=== PATIENT | male | born 1940 | race Caucasian/White ===

== ENCOUNTER 2018-10-08 17:55 | Inpatient (IN) | payer MEDICARE, OTHER ==
[~2018-10-08] VITALS: Ht 162.6 cm; Wt 67.7 kg
[2018-10-08] MEDS ORDERED: ONDANSETRON 4 MG/2 ML VIAL IV ONE (18:45)
[2018-10-08] MEDS ORDERED: IV NORMAL SALINE 1000 ML BAG IV ONE ×3 (18:45→20:15)
[2018-10-08] MEDS ORDERED: ONDANSETRON 4 MG/2 ML VIAL ONE (18:59)
[2018-10-08 19:05] LABS: BASOPHILS % (AUTO) 0.2 % (0.0-2.0); HEMATOCRIT 41.1 % (36.7-47.1); HEMOGLOBIN 14.4 g/dL (12.5-16.3); LYMPHOCYTES # (AUTO) 0.4 K/uL (20.0-40.0); LYMPHOCYTES % (AUTO) 3.3 % (20.5-51.5); MEAN CORPUSCULAR HEMOGLOBIN 31.6 uug (23.8-33.4); MEAN CORPUSCULAR HGB CONC 35 g/dL (32.5-36.3); MEAN CORPUSCULAR VOLUME 90.5 fL (73.0-96.2); MONOCYTES # (AUTO) 0.4 K/uL (2.0-10.0); MONOCYTES % (AUTO) 3.5 % (0.0-11.0); NEUTROPHILS # (AUTO) 11.4 K/uL (1.8-8.9); PLATELET COUNT (AUTO) 142 K/uL (152-348); RED BLOOD CELL COUNT(AUTO) 4.54 MIL/uL (4.06-5.63); WHITE BLOOD COUNT (AUTO) 12.3 K/uL (3.6-10.2)
[2018-10-08 19:12] LABS: CARBON DIOXIDE 20 mmol/L (21-32); CHLORIDE 92 mmol/L (98-107); CREATININE 4.3 mg/dL (0.6-1.3); GLUCOSE 157 mg/dL (74-106); POTASSIUM 3.5 mmol/L (3.5-5.1); UREA NITROGEN, BLOOD 60 mg/dL (7-18)
[2018-10-08 19:18] LABS: ALANINE AMINOTRANSFERASE 37 U/L (16-63); ALKALINE PHOSPHATASE 57 U/L (50-136); ASPARTATE AMINOTRANSFERASE 98 U/L (15-37); BILIRUBIN,DIRECT 0.2 mg/dL (0.0-0.2); BILIRUBIN,TOTAL 0.6 mg/dL (0.2-1.0); LIPASE 67 U/L (73-393); TOTAL PROTEIN, SERUM 7.9 g/dL (6.4-8.2)
[2018-10-08 19:29] LABS: BAND % (MANUAL) 36 % (0-10); LYMPHOCYTES % (MANUAL) 5 % (20-40); MONOCYTES % (MANUAL) 4 % (2-10); NEUTROPHILS % (MANUAL) 55 % (42-75)
[2018-10-08] MEDS ORDERED: AZITHROMYCIN 500 MG VIAL IV ONE (19:36)
[2018-10-08] MEDS ORDERED: CEFTRIAXONE 1 G VIAL ONE (19:37)
[2018-10-08] MEDS ORDERED: CEFTRIAXONE 1 G in IV DEXTROSE 5% 50 ML IV ONE (19:45)
[2018-10-08] MEDS ORDERED: AZITHROMYCIN IV 500 MG in IV DEXTROSE 5% 250 ML IV ONE (19:45)
--- NOTE | 2018-10-08 19:57 | NUR ---
EPIC paged for panel call
[2018-10-08 20:00] LABS: *BILIRUBIN,URIN NEGATIVE (NEGATIVE); *BLOOD, URINE 3+ (NEGATIVE); *COLOR,URINE YELLOW (YELLOW); *KETONES,URINE TRACE (NEGATIVE); *PROTEIN,URINE 2+ (NEGATIVE); *UROBILINOGEN,URINE 0.2 E.U./dl (NORMAL); LEUKOCYTE ESTERASE ,URINE NEGATIVE (NEGATIVE); NITRITE, URINE NEGATIVE (NEGATIVE); PH,URINE 5.5 (5.0-8.0); UGLUCOSE NEGATIVE (NEGATIVE)
--- NOTE | 2018-10-08 20:03 | NUR ---
Dr. Champion on phone with Heike LUCIA.
[2018-10-08] MEDS ORDERED: GUAIFENESIN/CODEINE 5 ML LIQUID UDC PO ONE (20:15)
[2018-10-08] MEDS ORDERED: ALBUTEROL SULFATE 2.5 MG/3 ML NEBU NEB ONE (20:15)
[2018-10-08] MEDS ORDERED: GUAIFENESIN/CODEINE 5 ML LIQUID UDC ONE (20:24)
[2018-10-08] MEDS ORDERED: ALBUTEROL SULFATE 2.5 MG/3 ML NEBU ONE (20:25)
[2018-10-08 20:33] LABS: *CLARITY,URINE HAZY (CLEAR)
[2018-10-08 20:35] LABS: MUCUS,URINE FEW /LPF (0-FEW); SQUAMOUS EPITHELIAL CELL,UR FEW /HPF (NONE SEEN); URINE AMORPHOUS URATE MODERATE /HPF; WBC,URINE 0-3 /HPF (0-3)
[2018-10-08] MEDS ORDERED: TAMS0.4C34 PO (20:35)
--- NOTE | 2018-10-08 20:35 | NUR ---
UNABLE TO OBTAIN COMPLETE MEDICATION LIST AT THIS TIME
[2018-10-08] MEDS ORDERED: LOSA25TA27 PO (20:50)
[2018-10-08] MEDS ORDERED: FERR325T28 PO (20:50)
[2018-10-08] MEDS ORDERED: [UNRECOGNIZED DRUG - REMARK] PO (20:50)
[2018-10-08] MEDS ORDERED: losartan PO (20:50)
[2018-10-08] MEDS ORDERED: lipitor PO (20:50)
[2018-10-08] MEDS ORDERED: [UNRECOGNIZED DRUG - REMARK] PO (20:50)
[2018-10-08] MEDS ORDERED: OXYC5CAP18 PO (20:50)
[2018-10-08] MEDS ORDERED: DOCU-141 PO (20:51)
--- NOTE | 2018-10-08 20:55 | NUR ---
Pt. admitted to TELE , under care of MAXIMO CRAB BACKER Belongs List completed
--- NOTE | 2018-10-08 21:15 | NUR ---
PT WAS BROUGHT TO FLOOR VIA FAMILY NICK AT BEDSIDE. ADMITTED TO TELE UNDER VEDA MARSH NP. INITIATED ADMISSION ASSESSMENT. WILL CALL FOR ORDERS.
[2018-10-08 21:20] VITALS: BP 149/45
[2018-10-08] MEDS ORDERED: ONDANSETRON 4 MG/2 ML VIAL IV PRN (21:45)
[2018-10-08] MEDS: ZOLPIDEM 5 MG TABLET PO PRN (22:26)
[2018-10-08] MEDS: ACETAMINOPHEN 325 MG TABLET PO PRN (22:26)
[2018-10-08 23:19] VITALS: BP 144/54
[2018-10-08] MEDS: IV NS 1000 ML 1,000 ML IV PRN (23:49)
--- NOTE | 2018-10-09 00:56 | NUR ---
SEEN BY VEDA MARSH NP.
[2018-10-09] MEDS: GUAIFENESIN LA 600 MG TABLET.SA PO SCH ×3 (01:23→20:53)
[2018-10-09] MEDS: methylPREDNISolone SOD SUCC 40 MG/ML VIAL IV SCH ×4 (01:24→20:52)
[2018-10-09] MEDS ORDERED: LEVOFLOXACIN 500 MG/D5W 100 ML ONE (01:32)
[2018-10-09] MEDS ORDERED: LEVOFLOXACIN 500 MG/D5W 500 MG in PREMIXED 1 EACH IV SCH (02:00)
[2018-10-09] MEDS ORDERED: TAMS0.4C34 PO (03:14)
[2018-10-09 03:41] VITALS: BP 108/50
--- NOTE | 2018-10-09 05:17 | NUR ---
PT IN BED, ASLEEP. COUGHING FREQUENTLY , GIVEN WITH MUCINEX ORDERED. IV FLUIDS RUNNING. SINUS TACH ON TELE 107. SAFETY MEASURES RENDERED.
[2018-10-09 06:40] LABS: BASOPHILS % (AUTO) 0.2 % (0.0-2.0); EOSINOPHILS % (AUTO) 0.1 % (0.0-7.0); HEMATOCRIT 36.6 % (36.7-47.1); LYMPHOCYTES # (AUTO) 0.3 K/uL (20.0-40.0); LYMPHOCYTES % (AUTO) 6.4 % (20.5-51.5); MEAN CORPUSCULAR HEMOGLOBIN 31.5 uug (23.8-33.4); MEAN CORPUSCULAR HGB CONC 35 g/dL (32.5-36.3); MEAN CORPUSCULAR VOLUME 88.8 fL (73.0-96.2); MONOCYTES # (AUTO) 0.2 K/uL (2.0-10.0); MONOCYTES % (AUTO) 4.8 % (0.0-11.0); NEUTROPHILS # (AUTO) 4.5 K/uL (1.8-8.9); NEUTROPHILS % (AUTO) 88.5 % (38.5-71.5); PLATELET COUNT (AUTO) 92 K/uL (152-348); RED BLOOD CELL COUNT(AUTO) 4.12 MIL/uL (4.06-5.63); WHITE BLOOD COUNT (AUTO) 5.1 K/uL (3.6-10.2)
[2018-10-09 06:54] LABS: CARBON DIOXIDE 20 mmol/L (21-32); CHLORIDE 101 mmol/L (98-107); CHOLESTEROL 62 mg/dL (<200); CREATININE 3.6 mg/dL (0.6-1.3); GLUCOSE 121 mg/dL (74-106); HDL CHOLESTEROL 21 mg/dL (40-60); POTASSIUM 3.6 mmol/L (3.5-5.1); TRIGLYCERIDES 138 MG/DL (30-150); UREA NITROGEN, BLOOD 58 mg/dL (7-18)
[2018-10-09 06:56] LABS: MAGNESIUM 0.8 mg/dL (1.8-2.4)
--- NOTE | 2018-10-09 07:00 | NUR ---
Magnesium 0.8 be tidwell was paged, awaiting to call back. Endorsed to am nurse to f/u .
[2018-10-09] MEDS: MAGNESIUM SULFATE/D5W 100 ML IV SCH ×4 (08:07→10:58)
[2018-10-09 09:19] LABS: BAND % (MANUAL) 20 % (0-10); LYMPHOCYTES % (MANUAL) 7 % (20-40); MONOCYTES % (MANUAL) 10 % (2-10); NEUTROPHILS % (MANUAL) 60 % (42-75)
[2018-10-09 09:20] LABS: EOSINOPHILS % (MANUAL) 1 % (0-8); METAMYELOCYTES % 2 % (0-1)
[2018-10-09] MEDS: IPRATROPIUM BROMIDE 0.5 MG/2.5 ML NEBU NEB PRN ×3 (09:32→23:55)
[2018-10-09] MEDS: ALBUTEROL SULFATE 2.5 MG/ 0.5 ML NEBU NEB PRN ×3 (09:32→23:55)
[2018-10-09 12:00] VITALS: BP 130/59
[2018-10-09] MEDS: ACETAMINOPHEN 325 MG TABLET PO PRN (12:29)
--- NOTE | 2018-10-09 12:30 | NUR ---
PATIENT GIVEN TYLENOL FOR MILD FEVER
--- NOTE | 2018-10-09 14:32 | NUR ---
CLINICAL PHARMACY NOTE:VANCOMYCIN DOSING Request for vancomycin dosing on 78 y/o male 5'4" 149lbs for possible blood stream infection Temp 100.2F BUN 58 Scr 3.6 WBC 5.1 bands 20 also on Levaquin Start vancomycin 1gm ivpb x 1 today. Will dose by levels due to decrease renal function. Random vancomycin level ordered for tomorrow afternoon. Will continue to monitor
[2018-10-09 14:46] LABS: *BILIRUBIN,URIN NEGATIVE (NEGATIVE); *BLOOD, URINE 3+ (NEGATIVE); *COLOR,URINE YELLOW (YELLOW); *KETONES,URINE NEGATIVE (NEGATIVE); *PROTEIN,URINE 1+ (NEGATIVE); *UROBILINOGEN,URINE 0.2 E.U./dl (NORMAL); LEUKOCYTE ESTERASE ,URINE NEGATIVE (NEGATIVE); NITRITE, URINE NEGATIVE (NEGATIVE); PH,URINE 5.5 (5.0-8.0); UGLUCOSE NEGATIVE (NEGATIVE)
[2018-10-09] MEDS ORDERED: VANCOMYCIN IV 1 G in PREMIXED 0 EACH IV ONE (15:00)
[2018-10-09 15:18] LABS: *CREATININE,URINE 56.5 mg/dL (30-125); *URINE TOTAL PROTEIN RANDOM 15.7 mg/dL (<150/24HR)
[2018-10-09 15:32] LABS: *CLARITY,URINE SLIGHTLY HAZY (CLEAR)
[2018-10-09 15:35] LABS: URINE AMORPHOUS URATE MODERATE /HPF; WBC,URINE 0-3 /HPF (0-3)
[2018-10-09 15:36] LABS: MUCUS,URINE FEW /LPF (0-FEW)
[2018-10-09] MEDS ORDERED: MENTHOL TOP (17:27)
[2018-10-09] MEDS ORDERED: LOSA100T31 PO (17:27)
[2018-10-09] MEDS ORDERED: MELO-107 PO (17:27)
[2018-10-09] MEDS ORDERED: COLC0.6C3 PO (17:27)
[2018-10-09] MEDS ORDERED: TRIA1CAP6 PO (17:27)
[2018-10-09] MEDS ORDERED: SILD100T PO (17:29)
[2018-10-09] MEDS ORDERED: [UNRECOGNIZED DRUG - CODE] BC (17:29)
[2018-10-09] MEDS ORDERED: SIMV20TA6 PO (17:33)
[2018-10-09] MEDS ORDERED: EMOL113C2 TP (17:33)
[2018-10-09] MEDS ORDERED: HYDR-3326 PO (17:35)
--- NOTE | 2018-10-09 18:58 | NUR ---
Patient is currently in bed, and has been cooperative with care, 5 episodes of diarrhea throughout the day. Currently patient receiving breathing treatment, and tolerates well. oxygen increased to 3L as patient saturation dropping to 89. Received med list from pharmacy at the [facility]. Informed be to update med list.
[2018-10-09] MEDS ORDERED: CEFTRIAXONE 1 G in IV DEXTROSE 5% 50 ML IV SCH (19:00)
[2018-10-09] MEDS: IV NS 1000 ML 1,000 ML IV PRN (19:41)
[2018-10-09] MEDS ORDERED: AZITHROMYCIN IV 500 MG in IV DEXTROSE 5% 250 ML IV SCH (20:00)
[2018-10-09] MEDS ORDERED: CEFEPIME HCL 1 G in IV DEXTROSE 5% 50 ML IV SCH (20:00)
[2018-10-09 20:32] VITALS: BP 111/42
[2018-10-09] MEDS: CEFEPIME HCL 1 G in IV DEXTROSE 5% 50 ML IV SCH (20:52)
[2018-10-09] MEDS: HYDROCODONE/APAP 5-325MG TABLET PO PRN (20:53)
[2018-10-09] MEDS: ATORVASTATIN 40 MG TABLET PO SCH (22:17)
[2018-10-09] MEDS: ASPIRIN 81 MG TAB.CHEW PO SCH (22:17)
[2018-10-09] MEDS: ZOLPIDEM 5 MG TABLET PO PRN (22:18)
[2018-10-10 00:43] VITALS: BP 112/37
[2018-10-10 05:48] VITALS: BP 108/44
[2018-10-10] MEDS: methylPREDNISolone SOD SUCC 40 MG/ML VIAL IV SCH ×3 (06:22→21:23)
[2018-10-10] MEDS: HYDROCODONE/APAP 5-325MG TABLET PO PRN ×2 (06:28→19:37)
[2018-10-10] MEDS: IV NS 1000 ML 1,000 ML IV PRN (06:28)
[2018-10-10 06:37] LABS: BASOPHILS % (AUTO) 0.1 % (0.0-2.0); EOSINOPHILS % (AUTO) 0.1 % (0.0-7.0); HEMATOCRIT 32.9 % (36.7-47.1); HEMOGLOBIN 11.9 g/dL (12.5-16.3); LYMPHOCYTES # (AUTO) 0.2 K/uL (20.0-40.0); LYMPHOCYTES % (AUTO) 2.6 % (20.5-51.5); MEAN CORPUSCULAR HEMOGLOBIN 31.9 uug (23.8-33.4); MEAN CORPUSCULAR HGB CONC 36 g/dL (32.5-36.3); MEAN CORPUSCULAR VOLUME 88.6 fL (73.0-96.2); MONOCYTES # (AUTO) 0.3 K/uL (2.0-10.0); MONOCYTES % (AUTO) 3.8 % (0.0-11.0); NEUTROPHILS # (AUTO) 8.2 K/uL (1.8-8.9); NEUTROPHILS % (AUTO) 93.4 % (38.5-71.5); PLATELET COUNT (AUTO) 98 K/uL (152-348); RED BLOOD CELL COUNT(AUTO) 3.71 MIL/uL (4.06-5.63); WHITE BLOOD COUNT (AUTO) 8.7 K/uL (3.6-10.2)
[2018-10-10 06:46] LABS: ALANINE AMINOTRANSFERASE 42 U/L (16-63); ALKALINE PHOSPHATASE 43 U/L (50-136); ASPARTATE AMINOTRANSFERASE 88 U/L (15-37); BILIRUBIN,TOTAL 0.4 mg/dL (0.2-1.0); CARBON DIOXIDE 22 mmol/L (21-32); CHLORIDE 102 mmol/L (98-107); CREATININE 2.2 mg/dL (0.6-1.3); GLUCOSE 128 mg/dL (74-106); TOTAL PROTEIN, SERUM 5.8 g/dL (6.4-8.2); UREA NITROGEN, BLOOD 48 mg/dL (7-18)
[2018-10-10 06:47] LABS: POTASSIUM 2.8 mmol/L (3.5-5.1)
--- NOTE | 2018-10-10 07:30 | NUR ---
RECEIVED PATIENT REPORT FROM AUTOMOBILE LIGHTS ASSEMBLER. PATIENT IS AWAKE, ALERT AND ORIENTED. CURRENTLY RECEIVING BREATHING TREATMENT. NO SIGNS OF DISTRESS OR PAIN NOTED. WILL CONTINUE TO MONITOR. BED IS IN LOW POSITION, CALL LIGHT WITHIN REACH.
[2018-10-10] MEDS: IPRATROPIUM BROMIDE 0.5 MG/2.5 ML NEBU NEB PRN ×2 (07:32→11:30)
[2018-10-10] MEDS: ALBUTEROL SULFATE 2.5 MG/ 0.5 ML NEBU NEB PRN ×2 (07:32→11:30)
[2018-10-10 08:19] LABS: BAND % (MANUAL) 20 % (0-10); LYMPHOCYTES % (MANUAL) 8 % (20-40); MONOCYTES % (MANUAL) 11 % (2-10); NEUTROPHILS % (MANUAL) 61 % (42-75)
[2018-10-10] MEDS: GUAIFENESIN LA 600 MG TABLET.SA PO SCH ×2 (09:21→20:21)
[2018-10-10] MEDS: ASPIRIN 81 MG TAB.CHEW PO SCH (09:21)
[2018-10-10] MEDS: METOPROLOL TARTRATE 25 MG TABLET PO SCH ×2 (09:22→20:20)
[2018-10-10] MEDS: ENSURE ENLIVE (VAN) 240 ML LIQUID PO SCH ×3 (09:23→17:18)
[2018-10-10] MEDS: POTASSIUM CHLORIDE 50 ML IV SCH ×4 (10:10→14:44)
[2018-10-10 11:02] VITALS: BP 122/43
[2018-10-10] MEDS: ALBUTEROL SULFATE 2.5 MG/3 ML NEBU NEB SCH ×2 (13:16→20:02)
[2018-10-10] MEDS: IPRATROPIUM BROMIDE 0.5 MG/2.5 ML NEBU NEB SCH ×2 (13:16→20:03)
--- NOTE | 2018-10-10 14:30 | NUR ---
CLINICAL PHARMACY NOTE:VANCOMYCIN DOSING To continue vancomycin dosing on 78 y/o male 5'4" 149lbs for possible blood stream infection Temp 97.8F BUN 48 Scr 2.2 (yesterday 3.6) WBC 8.7 Random off am labs today 11.0 Due to decreased renal function that is now improving, will continue to dose per level until stable. Dosed 1gm today at 1500. Will check renal fxn in am and order next random accordingly. Will continue to monitor
[2018-10-10] MEDS ORDERED: VANCOMYCIN IV 1 G in PREMIXED 0 EACH IV ONE (15:00)
[2018-10-10 15:04] LABS: CARBON DIOXIDE 22 mmol/L (21-32); CHLORIDE 102 mmol/L (98-107); CREATININE 1.9 mg/dL (0.6-1.3); GLUCOSE 195 mg/dL (74-106); UREA NITROGEN, BLOOD 43 mg/dL (7-18)
[2018-10-10 15:14] LABS: POTASSIUM 2.5 mmol/L (3.5-5.1)
[2018-10-10 15:36] VITALS: BP 120/50
--- NOTE | 2018-10-10 18:47 | NUR ---
PATIENT IS IN BED, BED IS IN LOW LOCKED POSITION AND CALL LIGHT WITHIN REACH. FAMILY IS AT BEDSIDE. NO SIGNS OR SYMPTOMS OF DISTRESS NOTED. PAIN IS ON 3L OF OXYGEN VIA NASAL CANNULA. NO PAIN AT THE MOMENT.
--- NOTE | 2018-10-10 19:58 | NUR ---
Received patient in bed awake & alert with family in room. No SOB denies chest pain but c/o pain on right lower abdomen radiating to right lower back. Offered pain meds, patient tolerated [place] 1 tab po. Vital signs WNL. Assisted to bedside commode, patient voided. Sinus rhythm on the monitor w/ HR 83 bpm.
[2018-10-10 20:03] VITALS: BP 135/42
[2018-10-10] MEDS: LACTOBACILLUS RHAMNOSUS GG 1 EACH CAPSULE PO SCH (20:20)
[2018-10-10] MEDS: ATORVASTATIN 40 MG TABLET PO SCH (20:21)
[2018-10-10] MEDS: Z GUARD REMEDY PASTE 57 GM TUBE TOP PRN (20:21)
[2018-10-10] MEDS: CEFEPIME HCL 1 G in IV DEXTROSE 5% 50 ML IV SCH (20:23)
[2018-10-10] MEDS ORDERED: LEVOFLOXACIN 750MG/D5W 750 MG in PREMIXED 1 EACH IV SCH (21:00)
[2018-10-11 00:01] VITALS: BP 115/36
[2018-10-11 05:24] VITALS: BP 117/43
[2018-10-11] MEDS: methylPREDNISolone SOD SUCC 40 MG/ML VIAL IV SCH ×3 (05:57→21:19)
[2018-10-11] MEDS: Z GUARD REMEDY PASTE 57 GM TUBE TOP PRN (06:02)
[2018-10-11 06:35] LABS: BASOPHILS % (AUTO) 0.1 % (0.0-2.0); HEMATOCRIT 29.2 % (36.7-47.1); HEMOGLOBIN 10.5 g/dL (12.5-16.3); LYMPHOCYTES # (AUTO) 0.6 K/uL (20.0-40.0); LYMPHOCYTES % (AUTO) 4.8 % (20.5-51.5); MEAN CORPUSCULAR HEMOGLOBIN 31.8 uug (23.8-33.4); MEAN CORPUSCULAR HGB CONC 36 g/dL (32.5-36.3); MEAN CORPUSCULAR VOLUME 88.6 fL (73.0-96.2); MONOCYTES # (AUTO) 1.2 K/uL (2.0-10.0); MONOCYTES % (AUTO) 9.3 % (0.0-11.0); NEUTROPHILS # (AUTO) 10.6 K/uL (1.8-8.9); NEUTROPHILS % (AUTO) 85.8 % (38.5-71.5); PLATELET COUNT (AUTO) 100 K/uL (152-348); WHITE BLOOD COUNT (AUTO) 12.4 K/uL (3.6-10.2)
[2018-10-11 06:51] LABS: ALANINE AMINOTRANSFERASE 40 U/L (16-63); ALKALINE PHOSPHATASE 54 U/L (50-136); ASPARTATE AMINOTRANSFERASE 47 U/L (15-37); BILIRUBIN,TOTAL 0.4 mg/dL (0.2-1.0); CARBON DIOXIDE 23 mmol/L (21-32); CHLORIDE 103 mmol/L (98-107); CREATININE 1.4 mg/dL (0.6-1.3); GLUCOSE 128 mg/dL (74-106); MAGNESIUM 1.6 mg/dL (1.8-2.4); PHOSPHOROUS 2.6 mg/dL (2.5-4.9); TOTAL PROTEIN, SERUM 5.6 g/dL (6.4-8.2); UREA NITROGEN, BLOOD 37 mg/dL (7-18)
[2018-10-11] MEDS: IV NS 1000 ML 1,000 ML IV PRN (06:53)
[2018-10-11 07:11] LABS: POTASSIUM 2.4 mmol/L (3.5-5.1)
--- NOTE | 2018-10-11 07:23 | NUR ---
Fairly rested, no acute resp distress. Noted increased redness on body area & lower legs, patient denies pain/itchiness. Received a call from the lab for current Potassium level= 2.4 mEq. Report given to Elana SALTER.
--- NOTE | 2018-10-11 07:30 | NUR ---
RECEIVED REPORT FROM SENIOR CORPORATE ACCOUNTANT NURSE, PATIENT IN BED AWAKE, UP AT COMMODE, NO DISTRESS NOTED AT THIS TIME, BED IN LOW POSITION, SIDE RAIL UP X2.
[2018-10-11] MEDS: ALBUTEROL SULFATE 2.5 MG/3 ML NEBU NEB SCH ×3 (07:39→20:07)
[2018-10-11 07:40] LABS: BAND % (MANUAL) 14 % (0-10); LYMPHOCYTES % (MANUAL) 3 % (20-40); MONOCYTES % (MANUAL) 7 % (2-10)
[2018-10-11 07:41] LABS: NEUTROPHILS % (MANUAL) 76 % (42-75)
[2018-10-11] MEDS: IPRATROPIUM BROMIDE 0.5 MG/2.5 ML NEBU NEB SCH ×3 (07:42→20:07)
[2018-10-11] MEDS: ENSURE ENLIVE (VAN) 240 ML LIQUID PO SCH ×3 (08:18→16:01)
[2018-10-11] MEDS: ASPIRIN 81 MG TAB.CHEW PO SCH (09:54)
[2018-10-11] MEDS: GUAIFENESIN LA 600 MG TABLET.SA PO SCH ×2 (09:54→21:19)
[2018-10-11] MEDS: LACTOBACILLUS RHAMNOSUS GG 1 EACH CAPSULE PO SCH ×2 (09:55→21:21)
[2018-10-11] MEDS: METOPROLOL TARTRATE 25 MG TABLET PO SCH ×2 (09:55→21:20)
[2018-10-11 11:14] VITALS: BP 149/52
[2018-10-11] MEDS ORDERED: POTASSIUM CHLORIDE 20 MEQ TAB.PRT.SR PO ONE ×3 (11:15→15:00)
[2018-10-11] MEDS: MAGNESIUM SULFATE/D5W 100 ML IV SCH ×2 (11:53→12:43)
[2018-10-11] MEDS ORDERED: CEFEPIME HCL 1 G in IV DEXTROSE 5% 50 ML IV SCH (13:00)
[2018-10-11] MEDS: IV 1/2 NS + KCL 20 MEQ BAG 1,000 ML IV SCH (13:32)
[2018-10-11 14:25] LABS: CARBON DIOXIDE 24 mmol/L (21-32); CHLORIDE 101 mmol/L (98-107); CREATININE 1.5 mg/dL (0.6-1.3); GLUCOSE 179 mg/dL (74-106); UREA NITROGEN, BLOOD 35 mg/dL (7-18)
[2018-10-11 14:28] LABS: POTASSIUM 2.4 mmol/L (3.5-5.1)
[2018-10-11 15:26] VITALS: BP 137/48
--- NOTE | 2018-10-11 16:30 | NUR ---
RECEIVED ORDERS FROM DR. FAJARDO FOR 40MEQ KCL IV REPLACEMENT AND 40MEQ KCL PO Q4HRS X2, BASED ON REPORTED LABS, AFTER DISCUSSING ORDERS, PHARMACY CHECKED ORDERS AND REQUESTED LABS FOR 2100 BEFORE 2ND PO DOSE OF KCL ORDER GIVE. IF LABS ARE TOO ELEVATED, DR. FAJARDO IS TO BE CALLED TO DISCONTINUE 2ND ORDER OF PO 40MEQ KCL.
[2018-10-11] MEDS: POTASSIUM CHLORIDE 50 ML IV SCH ×5 (17:01→21:51)
[2018-10-11] MEDS ORDERED: SIMVASTATIN 20 MG TABLET PO SCH (18:00)
--- NOTE | 2018-10-11 18:36 | NUR ---
Patient has been cooperative with care, all needs met. Patient continues to ask for a shower after he was given a bed bath and shave by TICKET MAKER. Patient continues to be unstable on feet, and cannot stretching machine tender frame shower. Currently Potassium infusing, ice bag provided for pain in arm from infusion. Bed in low position, side rails up x2, bed alarm on.
[2018-10-11] MEDS ORDERED: diphenhydrAMINE 25 MG CAP PO PRN (19:30)
[2018-10-11 20:34] VITALS: BP 142/93
[2018-10-11] MEDS: ATORVASTATIN 40 MG TABLET PO SCH (21:21)
[2018-10-11] MEDS: TAMSULOSIN HCL 0.4 MG CAP.SR.24H PO SCH (21:21)
[2018-10-11] MEDS: ZOLPIDEM 5 MG TABLET PO PRN (21:27)
[2018-10-11] MEDS ORDERED: MEROPENEM 500 MG VIAL IV ONE (21:33)
[2018-10-11] MEDS: POTASSIUM CHLORIDE 20 MEQ TAB.PRT.SR PO SCH (21:50)
[2018-10-11] MEDS: MEROPENEM 0.5 G in IV NORMAL SALINE 50 ML IV SCH (21:51)
[2018-10-12] MEDS: POTASSIUM CHLORIDE 20 MEQ TAB.PRT.SR PO SCH ×2 (00:20→04:32)
[2018-10-12] MEDS: IV 1/2 NS + KCL 20 MEQ BAG 1,000 ML IV SCH ×3 (00:35→14:19)
[2018-10-12] MEDS: methylPREDNISolone SOD SUCC 40 MG/ML VIAL IV SCH ×3 (05:38→21:50)
[2018-10-12] MEDS ORDERED: MEROPENEM 500 MG VIAL IV ONE (05:51)
[2018-10-12 05:55] VITALS: BP 132/72
[2018-10-12] MEDS: MEROPENEM 0.5 G in IV NORMAL SALINE 50 ML IV SCH (06:09)
[2018-10-12 06:47] LABS: CARBON DIOXIDE 23 mmol/L (21-32); CHLORIDE 108 mmol/L (98-107); CREATININE 1.2 mg/dL (0.6-1.3); GLUCOSE 121 mg/dL (74-106); MAGNESIUM 1.5 mg/dL (1.8-2.4); PHOSPHOROUS 1.9 mg/dL (2.5-4.9); POTASSIUM 3.7 mmol/L (3.5-5.1); UREA NITROGEN, BLOOD 32 mg/dL (7-18)
--- NOTE | 2018-10-12 06:54 | NUR ---
END OF SHIFT REPORT Patient rested well in between care; seen by Ayana METAL CABINET FINISHER with new orders; K+ last night was 2.8, continued K+ pills as ordered; patient's LEFT arm IV dcd; new IV to right wrist started; pt pulled out this IV and new IV started again on the R forearm; no acute distress; assisted to meet hygiene needs; no nausea, vomiting or diarrhea; fall precaution; patient is for PICC line placement today; will endorse to next shift.
[2018-10-12 07:30] LABS: BASOPHILS # (AUTO) 0.1 K/uL (0.0-8.0); BASOPHILS % (AUTO) 0.8 % (0.0-2.0); EOSINOPHILS % (AUTO) 0.1 % (0.0-7.0); LYMPHOCYTES # (AUTO) 1.8 K/uL (20.0-40.0); LYMPHOCYTES % (AUTO) 17.1 % (20.5-51.5); MEAN CORPUSCULAR HEMOGLOBIN 31.8 uug (23.8-33.4); MEAN CORPUSCULAR HGB CONC 36 g/dL (32.5-36.3); MEAN CORPUSCULAR VOLUME 87.7 fL (73.0-96.2); MONOCYTES # (AUTO) 0.8 K/uL (2.0-10.0); MONOCYTES % (AUTO) 7.5 % (0.0-11.0); NEUTROPHILS # (AUTO) 7.7 K/uL (1.8-8.9); NEUTROPHILS % (AUTO) 74.5 % (38.5-71.5); PLATELET COUNT (AUTO) 95 K/uL (152-348); RED BLOOD CELL COUNT(AUTO) 3.07 MIL/uL (4.06-5.63); WHITE BLOOD COUNT (AUTO) 10.3 K/uL (3.6-10.2)
[2018-10-12] MEDS: IPRATROPIUM BROMIDE 0.5 MG/2.5 ML NEBU NEB SCH ×3 (07:41→18:30)
[2018-10-12] MEDS: ALBUTEROL SULFATE 2.5 MG/3 ML NEBU NEB SCH ×3 (07:41→18:30)
--- NOTE | 2018-10-12 07:48 | NUR ---
RECEIVED PATIENT LYING IN BED, PATIENT IS AWAKE ALERT AND ORIENTED. NO SIGNS OF DISTRESS NOTED, PATIENT IS ON OXYGEN VIA NASAL CANNULA. WILL CONTINUE TO MONITOR. CALL LIGHT WITHIN REACH, BED IN LOW POSITION.
[2018-10-12 08:02] LABS: HEMATOCRIT 27.2 % (36.7-47.1)
[2018-10-12] MEDS: LACTOBACILLUS RHAMNOSUS GG 1 EACH CAPSULE PO SCH ×2 (08:35→20:26)
[2018-10-12] MEDS: ENSURE ENLIVE (VAN) 240 ML LIQUID PO SCH ×3 (08:35→17:12)
[2018-10-12] MEDS: GUAIFENESIN LA 600 MG TABLET.SA PO SCH ×2 (08:35→20:26)
[2018-10-12] MEDS: ASPIRIN 81 MG TAB.CHEW PO SCH (08:35)
[2018-10-12] MEDS: FERROUS SULFATE 325 MG TABEC PO SCH (08:35)
[2018-10-12] MEDS: METOPROLOL TARTRATE 25 MG TABLET PO SCH ×2 (08:36→20:30)
[2018-10-12] MEDS: LORATADINE 10 MG TABLET PO SCH (08:36)
[2018-10-12 08:44] LABS: BAND % (MANUAL) 9 % (0-10); LYMPHOCYTES % (MANUAL) 16 % (20-40); MONOCYTES % (MANUAL) 7 % (2-10); NEUTROPHILS % (MANUAL) 68 % (42-75)
[2018-10-12] MEDS ORDERED: NEUTRA PHOS PACKET PO ONE (10:45)
[2018-10-12 11:01] VITALS: BP 152/60
[2018-10-12] MEDS: MAGNESIUM SULFATE/D5W 100 ML IV SCH ×2 (12:26→13:41)
--- NOTE | 2018-10-12 19:04 | NUR ---
PATIENT IS LAYING IN BED COMFORTABLY, DENIES ANY PAIN. NO SIGNS OF DISTRESS NOTED. BED IS IN LOW POSITION, LOCKED AND CALL LIGHT WITHIN REACH. PATIENT IS ON OXYGEN VIA NASAL CANNULA.
--- NOTE | 2018-10-12 19:45 | NUR ---
SBAR received from AM nurse. Patient alert and oriented time 3-4 with family at bedside at beginning of shift. NC running at 2L, with no SOB of pain noted at this time. PICC line and Right forearm IV patent and intact. Patient able to ambulate to bathroom and is requesting sleeping pill. Call light and frequently used items within reach. Will continue to monitor.
[2018-10-12 20:06] VITALS: BP 170/54
[2018-10-12] MEDS: TAMSULOSIN HCL 0.4 MG CAP.SR.24H PO SCH (20:26)
[2018-10-12] MEDS: ZOLPIDEM 5 MG TABLET PO PRN (20:27)
[2018-10-12] MEDS: ATORVASTATIN 40 MG TABLET PO SCH (20:28)
[2018-10-12] MEDS: MEROPENEM 1 G in IV NORMAL SALINE 100 ML IV SCH (20:31)
[2018-10-12] MEDS: IV 1/2 NS + KCL 20 MEQ BAG 1,000 ML IV PRN (20:32)
[2018-10-13] MEDS: IV 1/2 NS + KCL 20 MEQ BAG 1,000 ML IV PRN (00:16)
[2018-10-13] MEDS: methylPREDNISolone SOD SUCC 40 MG/ML VIAL IV SCH ×2 (05:10→13:33)
[2018-10-13 05:15] VITALS: BP 137/49
[2018-10-13 05:36] LABS: BASOPHILS % (AUTO) 0.3 % (0.0-2.0); HEMATOCRIT 26.6 % (36.7-47.1); HEMOGLOBIN 9.6 g/dL (12.5-16.3); LYMPHOCYTES # (AUTO) 1.9 K/uL (20.0-40.0); LYMPHOCYTES % (AUTO) 20.6 % (20.5-51.5); MEAN CORPUSCULAR HEMOGLOBIN 31.8 uug (23.8-33.4); MEAN CORPUSCULAR HGB CONC 36 g/dL (32.5-36.3); MEAN CORPUSCULAR VOLUME 88.2 fL (73.0-96.2); MONOCYTES # (AUTO) 1.2 K/uL (2.0-10.0); MONOCYTES % (AUTO) 12.7 % (0.0-11.0); NEUTROPHILS % (AUTO) 66.4 % (38.5-71.5); PLATELET COUNT (AUTO) 114 K/uL (152-348); RED BLOOD CELL COUNT(AUTO) 3.01 MIL/uL (4.06-5.63); WHITE BLOOD COUNT (AUTO) 9.1 K/uL (3.6-10.2)
[2018-10-13 06:05] LABS: CARBON DIOXIDE 23 mmol/L (21-32); CHLORIDE 107 mmol/L (98-107)
[2018-10-13 06:06] LABS: ALANINE AMINOTRANSFERASE 57 U/L (16-63); ALKALINE PHOSPHATASE 62 U/L (50-136); ASPARTATE AMINOTRANSFERASE 35 U/L (15-37); BILIRUBIN,TOTAL 0.4 mg/dL (0.2-1.0); CREATININE 1.1 mg/dL (0.6-1.3); GLUCOSE 113 mg/dL (74-106); MAGNESIUM 1.6 mg/dL (1.8-2.4); PHOSPHOROUS 3.1 mg/dL (2.5-4.9); TOTAL PROTEIN, SERUM 5.5 g/dL (6.4-8.2); UREA NITROGEN, BLOOD 30 mg/dL (7-18)
[2018-10-13 06:12] LABS: LYMPHOCYTES % (MANUAL) 8 % (20-40); MONOCYTES % (MANUAL) 6 % (2-10); NEUTROPHILS % (MANUAL) 85 % (42-75)
--- NOTE | 2018-10-13 06:54 | NUR ---
Patient slept well last night. IVs and midline in right arm intact and patent and IVF infusing . No acute distress or pain noted during shift. Fall precautions in place. Needs assessed and attended to. Safety measures maintained and call hanley within reach.
[2018-10-13] MEDS: ALBUTEROL SULFATE 2.5 MG/3 ML NEBU NEB SCH ×2 (07:21→13:08)
[2018-10-13] MEDS: IPRATROPIUM BROMIDE 0.5 MG/2.5 ML NEBU NEB SCH ×2 (07:21→13:08)
--- NOTE | 2018-10-13 07:30 | NUR ---
Sleeping, comfortable. O2 at 2L/NC, not in distress.
[2018-10-13] MEDS: MEROPENEM 1 G in IV NORMAL SALINE 100 ML IV SCH (09:18)
[2018-10-13] MEDS: MAGNESIUM SULFATE/D5W 100 ML IV SCH ×2 (09:19→10:38)
[2018-10-13] MEDS: FERROUS SULFATE 325 MG TABEC PO SCH (09:20)
[2018-10-13] MEDS: ASPIRIN 81 MG TAB.CHEW PO SCH (09:20)
[2018-10-13] MEDS: LACTOBACILLUS RHAMNOSUS GG 1 EACH CAPSULE PO SCH (09:20)
[2018-10-13] MEDS: LORATADINE 10 MG TABLET PO SCH (09:20)
[2018-10-13] MEDS: GUAIFENESIN LA 600 MG TABLET.SA PO SCH (09:20)
[2018-10-13] MEDS: METOPROLOL TARTRATE 25 MG TABLET PO SCH (09:21)
[2018-10-13] MEDS: ENSURE ENLIVE (VAN) 240 ML LIQUID PO SCH ×3 (09:22→17:36)
[2018-10-13 11:07] VITALS: BP 151/52
--- NOTE | 2018-10-13 11:30 | NUR ---
Ambulating in the hallway with nursing 2x
[2018-10-13] MEDS: HYDROCODONE/APAP 5-325MG TABLET PO PRN (18:47)
--- NOTE | 2018-10-13 18:52 | NUR ---
With discharge order to home with home health arranged with [facility] for IV antibiotics infusion. Saline lock removed. PICC line to RUE intact and patent. DC instruction given to patient, verbalized understanding. Waiting for family to milk pickup truck driver.
--- NOTE | 2018-10-13 19:19 | NUR ---
Went home per ambulatory per request in fair condition, not in distress, afebrile, accompanied by son in law.
== END 2018-10-13 19:12 | disposition home health service (06) | DRG 871 ==
LOC: ER 17:55 → TELE 20:49 → MED 10-11 19:25
PROVIDERS: ADMIT Nurse Practitioner Acute Care; ATTEND Nurse Practitioner Acute Care
PROC: 05HY33Z Insertion of Infusion Device into Upper Vein, Percutaneous Approach (ICD-10-PCS; principal; 2018-10-12)
DX: A40.0 Sepsis due to streptococcus, group A (principal); J18.9 Pneumonia, unspecified organism; N17.0 Acute kidney failure with tubular necrosis; I21.A1 Myocardial infarction type 2; E44.0 Moderate protein-calorie malnutrition; J44.0 Chronic obstructive pulmonary disease with (acute) lower respiratory infection; E87.1 Hypo-osmolality and hyponatremia; E86.1 Hypovolemia; E86.0 Dehydration; Z68.25 Body mass index [BMI] 25.0-25.9, adult; E83.42 Hypomagnesemia; R65.20 Severe sepsis without septic shock; M06.9 Rheumatoid arthritis, unspecified; R19.7 Diarrhea, unspecified; K57.30 Diverticulosis of large intestine without perforation or abscess without bleeding; F17.210 Nicotine dependence, cigarettes, uncomplicated; E78.5 Hyperlipidemia, unspecified; M89.9 Disorder of bone, unspecified; K40.90 Unilateral inguinal hernia, without obstruction or gangrene, not specified as recurrent; D64.9 Anemia, unspecified; E87.6 Hypokalemia; I12.9 Hypertensive chronic kidney disease with stage 1 through stage 4 chronic kidney disease, or unspecified chronic kidney disease; N18.9 Chronic kidney disease, unspecified; M46.04 Spinal enthesopathy, thoracic region
CPT/HCPCS: 36415; 70030-TC; 71045; 71250; 76770; 83605; 83690; 83735; 84100; 84132; 84156; 84300; 85025; 87040; 87077; 87086; 87400; 92610; 93005; 93307; 94640; 94664; 97165; A4663; C1751; G0378; J0456; J0692; J0696; J1956; J2185; J2405; J2920; J3370; J3475; J3480; J3490; J3590; J7030; J7040; J7060

== ENCOUNTER 2018-10-22 17:23 | Inpatient (IN) | payer OTHER ==
[~2018-10-22] VITALS: Ht 165.1 cm; Wt 65.3 kg
[~2018-10-22 17:23] MED LIST: COLC0.6C3 PO; DOCU-141 PO; EMOL113C2 TP; FERR325T28 PO; HYDR-3326 PO; LOSA100T31 PO; LOSA25TA27 PO; MELO-107 PO; OXYC5CAP18 PO; SILD100T PO; SIMV20TA6 PO; TAMS0.4C34 PO; TRIA1CAP6 PO; [UNRECOGNIZED DRUG - CODE] BC
--- NOTE | 2018-10-22 17:37 | NUR ---
PT A/OX4, PRESENTS TO THE ER C/O WEAKNESS X 2 DAYS. PER FAMILY REPORT, PT WAS D/C FROMT HIS HOSPITAL SEVERAL DAYS AGO W/ A PICC LINE IN RUE FOR IV ANTIBIOTIC TX AT HOME. PT HAS BEEN NOTICEABLY WEAK AND OF POOR APPETITE. VSS. PT SELF-AMBULATED INTO THE ER W/ STEADY GAIT. PT DENIES PAIN, C/P, SOB, N/V/D, DIZZINESS, HEADACHE.
[2018-10-22] MEDS ORDERED: ERTA1VIA4 IV (17:53)
--- NOTE | 2018-10-22 17:55 | NUR ---
TOMI HARE AT BEDSIDE FOR MSE.
[2018-10-22] MEDS ORDERED: DEXAMETHASONE SOD PHOSPHATE 4 MG INJ IV ONE (18:15)
[2018-10-22] MEDS ORDERED: IV NORMAL SALINE 1000 ML BAG IV ONE (18:15)
--- NOTE | 2018-10-22 18:21 | NUR ---
RECEIVED ORDERS FROM TOMI HARE TO ACCESS PICC LINE IN [facility].
--- NOTE | 2018-10-22 18:21 | NUR ---
YARN INSPECTOR AT BEDSIDE.
[2018-10-22] MEDS ORDERED: DEXAMETHASONE SOD PHOSPHATE 10 MG INJ ONE (18:27)
--- NOTE | 2018-10-22 18:38 | NUR ---
PT TAKEN TO RADIOLOGY FOR CT SCAN.
--- NOTE | 2018-10-22 18:49 | NUR ---
PT BACK IN ER FROM RADIOLOGY.
[2018-10-22 19:09] LABS: *BILIRUBIN,URIN NEGATIVE (NEGATIVE); *BLOOD, URINE Trace-lysed (NEGATIVE); *CLARITY,URINE CLEAR (CLEAR); *COLOR,URINE YELLOW (YELLOW); *KETONES,URINE TRACE (NEGATIVE); *UROBILINOGEN,URINE 0.2 E.U./dl (NORMAL); LEUKOCYTE ESTERASE ,URINE NEGATIVE (NEGATIVE); NITRITE, URINE NEGATIVE (NEGATIVE); PH,URINE 5.5 (5.0-8.0); UGLUCOSE NEGATIVE (NEGATIVE)
--- NOTE | 2018-10-22 19:15 | NUR ---
SHIFT REPORT GIVEN TO GAETANO POST.
[2018-10-22 19:21] LABS: BASOPHILS # (AUTO) 0.1 K/uL (0.0-8.0); BASOPHILS % (AUTO) 0.9 % (0.0-2.0); EOSINOPHILS % (AUTO) 0.3 % (0.0-7.0); HEMATOCRIT 23.1 % (36.7-47.1); HEMOGLOBIN 8.2 g/dL (12.5-16.3); LYMPHOCYTES # (AUTO) 0.9 K/uL (20.0-40.0); LYMPHOCYTES % (AUTO) 11.5 % (20.5-51.5); MEAN CORPUSCULAR HEMOGLOBIN 32.2 uug (23.8-33.4); MEAN CORPUSCULAR HGB CONC 35 g/dL (32.5-36.3); MEAN CORPUSCULAR VOLUME 90.9 fL (73.0-96.2); MONOCYTES # (AUTO) 0.9 K/uL (2.0-10.0); MONOCYTES % (AUTO) 10.9 % (0.0-11.0); NEUTROPHILS # (AUTO) 6.2 K/uL (1.8-8.9); NEUTROPHILS % (AUTO) 76.4 % (38.5-71.5); PLATELET COUNT (AUTO) 319 K/uL (152-348); RED BLOOD CELL COUNT(AUTO) 2.54 MIL/uL (4.06-5.63); WHITE BLOOD COUNT (AUTO) 8.1 K/uL (3.6-10.2)
--- NOTE | 2018-10-22 19:25 | NUR ---
PATIENT IS AWAKE AND ALERT AT THIS TIME. NS INFUSING VIA PICC LINE IN RUE. NO DISTRESS NOTED. NEEDS MET.
[2018-10-22 19:27] LABS: CARBON DIOXIDE 25 mmol/L (21-32); CHLORIDE 102 mmol/L (98-107); CREATININE 1.5 mg/dL (0.6-1.3); GLUCOSE 129 mg/dL (74-106); POTASSIUM 3.6 mmol/L (3.5-5.1); UREA NITROGEN, BLOOD 22 mg/dL (7-18)
[2018-10-22 19:32] LABS: COARSE GRANULAR CASTS,URINE 0-3 /LPF; MUCUS,URINE MODERATE /LPF (0-FEW); WBC,URINE 0-3 /HPF (0-3)
[2018-10-22 19:40] LABS: ALANINE AMINOTRANSFERASE 61 U/L (16-63); ALKALINE PHOSPHATASE 63 U/L (50-136); ASPARTATE AMINOTRANSFERASE 54 U/L (15-37); BILIRUBIN,DIRECT 0.1 mg/dL (0.0-0.2); BILIRUBIN,TOTAL 0.2 mg/dL (0.2-1.0)
[2018-10-22] MEDS ORDERED: PANTOPRAZOLE SODIUM 40 MG VIAL ONE (20:12)
[2018-10-22] MEDS ORDERED: PANTOPRAZOLE SODIUM 40 MG VIAL IV ONE (20:15)
--- NOTE | 2018-10-22 20:34 | NUR ---
Paged [employer] [facility] [employer] for panel call. Pending call back from Emi Raymond NP.
--- NOTE | 2018-10-22 21:07 | NUR ---
Pt. admitted to TELE , under care of Renetta CHAN KENO TERMINAL OPERATOR Belongs List completed.
[2018-10-22] MEDS ORDERED: HYDROCODONE/APAP 5-325MG TABLET PO PRN (21:30)
[2018-10-22] MEDS ORDERED: ACETAMINOPHEN 325 MG TABLET PO PRN (21:30)
[2018-10-22] MEDS ORDERED: ONDANSETRON 4 MG/2 ML VIAL IV PRN (21:30)
[2018-10-22] MEDS ORDERED: MAGNESIUM HYDROXIDE 30 ML LIQUID UDC PO PRN (21:30)
[2018-10-22] MEDS ORDERED: Z GUARD REMEDY PASTE 57 GM TUBE TOP PRN (21:30)
--- NOTE | 2018-10-22 22:00 | NUR ---
Received pt tele unit, under the care of ROCIO MIDDLE SCHOOL FRENCH TEACHER. Pt awake, alert and oriented x4. Tele placed and noted to be SR with peaked T waves and HR of 68. Pt c/o of headache 6/10 on pain scale. No acute distress noted. Discussed and reviewed plan of care with pt, pt cooperative. IVF orders. Antibiotic therapy noted. PICC line intact and patent. Pertinent assessments and unit orientation done. Belongings list completed. Safety precautions in place. Call light within reach. Will continue to monitor and carry out all orders.
[2018-10-22 22:11] VITALS: BP 129/40
[2018-10-22] MEDS: IV NS 1000 ML 1,000 ML IV PRN (22:44)
[2018-10-22] MEDS ORDERED: MEROPENEM 500 MG VIAL IV ONE (22:49)
[2018-10-22] MEDS: MEROPENEM 0.5 G in IV NORMAL SALINE 50 ML IV SCH (22:59)
[2018-10-23 04:00] VITALS: BP 132/40
[2018-10-23] MEDS: MEROPENEM 0.5 G in IV NORMAL SALINE 50 ML IV SCH ×2 (05:03→18:20)
[2018-10-23 06:59] LABS: BASOPHILS % (AUTO) 0.1 % (0.0-2.0); HEMATOCRIT 24.5 % (36.7-47.1); HEMOGLOBIN 8.6 g/dL (12.5-16.3); LYMPHOCYTES # (AUTO) 0.5 K/uL (20.0-40.0); LYMPHOCYTES % (AUTO) 8.8 % (20.5-51.5); MEAN CORPUSCULAR HGB CONC 35 g/dL (32.5-36.3); MEAN CORPUSCULAR VOLUME 90.7 fL (73.0-96.2); MONOCYTES # (AUTO) 0.1 K/uL (2.0-10.0); MONOCYTES % (AUTO) 1.8 % (0.0-11.0); NEUTROPHILS # (AUTO) 5.5 K/uL (1.8-8.9); NEUTROPHILS % (AUTO) 89.3 % (38.5-71.5); PLATELET COUNT (AUTO) 328 K/uL (152-348); WHITE BLOOD COUNT (AUTO) 6.2 K/uL (3.6-10.2)
[2018-10-23 07:00] LABS: CARBON DIOXIDE 22 mmol/L (21-32); CHLORIDE 107 mmol/L (98-107); CHOLESTEROL 93 mg/dL (<200); CREATININE 1.4 mg/dL (0.6-1.3); GLUCOSE 193 mg/dL (74-106); HDL CHOLESTEROL 28 mg/dL (40-60); PHOSPHOROUS 3.8 mg/dL (2.5-4.9); POTASSIUM 3.8 mmol/L (3.5-5.1); TRIGLYCERIDES 34 MG/DL (30-150); UREA NITROGEN, BLOOD 22 mg/dL (7-18)
[2018-10-23 07:03] LABS: MAGNESIUM 1.2 mg/dL (1.8-2.4)
--- NOTE | 2018-10-23 07:06 | NUR ---
Reported CRITICAL VALUE OF MAGNESIUM 1.2. Called REA CHAN. Awaiting call back.
[2018-10-23 07:10] LABS: THYROID STIMULATING HORMONE 0.505 mIU/mL (0.358-3.740)
--- NOTE | 2018-10-23 07:20 | NUR ---
RECEIVED REPORT FROM FIXER BOARDING ROOM NURSE, PATIENT IN BED AWAKE. NO DISTRESS NOTED AT THIS TIME, BED IN LOW POSITION, SIDE RAILS UP X2, BED ALARM ON.
[2018-10-23] MEDS: ENSURE WITH FIBER 237 ML LIQUID (CHOCOLATE) PO SCH ×3 (08:15→18:19)
[2018-10-23] MEDS: MAGNESIUM SULFATE/D5W 100 ML IV SCH ×4 (08:57→11:30)
[2018-10-23] MEDS: PANTOPRAZOLE SODIUM 40 MG VIAL IV SCH (08:58)
[2018-10-23] MEDS: DOCUSATE SODIUM 100 MG CAPSULE PO SCH (08:58)
[2018-10-23] MEDS ORDERED: Medication Not On Formulary EA (Triamterene/Hydrochlorothiazid (Triamterene-Hctz 37.5-25 PO SCH (09:00)
[2018-10-23] MEDS: LOSARTAN POTASSIUM 25 MG TABLET PO SCH (09:00)
[2018-10-23] MEDS: NICOTINE 14 MG/24HR PATCH TD SCH (09:02)
[2018-10-23] MEDS: ENOXAPARIN SODIUM 40 MG/0.4 ML DISP.SYRIN SQ SCH (09:02)
[2018-10-23] MEDS: TRIAMTERENE/HCTZ 75-50 MG TABLET PO SCH (09:42)
[2018-10-23 12:03] VITALS: BP 111/95
[2018-10-23] MEDS: MELOXICAM 7.5 MG TABLET PO SCH (12:59)
[2018-10-23 15:42] VITALS: BP 133/36
--- NOTE | 2018-10-23 17:58 | NUR ---
CLIENT HAS BEEN COOPERATIVE WITH CARE, STOOD IN THE SHOWER AND CLEANED UP. CLIENT TOLERATING MEALS, AND HAS BEEN BREATHING WITH NO DISTRESS. CURRENTLY CLIENT IN BED, NO DISTRESS NOTED AT THIS TIME, BED IN LOW POSITION, SIDE RAILS UP X2, BED ALARM ON.
[2018-10-23] MEDS ORDERED: SIMVASTATIN 20 MG TABLET PO SCH (18:00)
[2018-10-23] MEDS: TAMSULOSIN HCL 0.4 MG CAP.SR.24H PO SCH (18:19)
--- NOTE | 2018-10-23 19:30 | NUR ---
Received patient awake in bed, not in any form of distress. Patient alert and oriented x 4 and ambulatory. On room air tolerated. With PICC line on the right upper arm, patent and intact with dressing. Noted per day shift nurse, complains of pain, will observe for recurrence. Bed in low position, side rails up x 2, call light within reach. Noise and lights subdued. Will continue to monitor.
[2018-10-23 20:00] VITALS: BP 132/34
[2018-10-23] MEDS ORDERED: MEROPENEM 1 G in IV NORMAL SALINE 100 ML IV SCH ×2 (20:00→22:00)
[2018-10-23] MEDS: SIMVASTATIN 20 MG TABLET PO SCH (20:09)
[2018-10-23] MEDS ORDERED: LEVOFLOXACIN 500 MG TABLET PO SCH (20:30)
--- NOTE | 2018-10-23 20:44 | NUR ---
TEXTED DR. ROMO FOR MRI L SPINE APPROVAL.
[2018-10-23] MEDS ORDERED: LEVOFLOXACIN 750 MG TABLET PO SCH (21:00)
[2018-10-23] MEDS: LINEZOLID 600 MG TABLET PO SCH (21:12)
[2018-10-24] VITALS (10 sets, daily range): BP systolic 121–154; BP diastolic 35–94
[2018-10-24] MEDS: IV NS 1000 ML 1,000 ML IV PRN (00:48)
--- NOTE | 2018-10-24 05:55 | NUR ---
Patient slept well throughout the night. Patient alert and oriented x 4 and ambulatory.Still on room air tolerated. With PICC line on the right upper arm, patent and intact with dressing. No recurrence of pain. Ensured safety and comfort.
[2018-10-24 07:06] LABS: BASOPHILS % (AUTO) 0.3 % (0.0-2.0); EOSINOPHILS % (AUTO) 0.2 % (0.0-7.0); LYMPHOCYTES # (AUTO) 1.1 K/uL (20.0-40.0); LYMPHOCYTES % (AUTO) 12.3 % (20.5-51.5); MEAN CORPUSCULAR HGB CONC 35 g/dL (32.5-36.3); MEAN CORPUSCULAR VOLUME 90.7 fL (73.0-96.2); MONOCYTES # (AUTO) 0.7 K/uL (2.0-10.0); MONOCYTES % (AUTO) 7.8 % (0.0-11.0); NEUTROPHILS % (AUTO) 79.4 % (38.5-71.5); PLATELET COUNT (AUTO) 326 K/uL (152-348)
[2018-10-24 07:13] LABS: IRON, SERUM 71 ug/dL (50-175)
[2018-10-24 07:16] LABS: CARBON DIOXIDE 22 mmol/L (21-32); CHLORIDE 109 mmol/L (98-107); CREATININE 1.2 mg/dL (0.6-1.3); GLUCOSE 101 mg/dL (74-106); MAGNESIUM 1.9 mg/dL (1.8-2.4); PHOSPHOROUS 3.4 mg/dL (2.5-4.9); POTASSIUM 3.8 mmol/L (3.5-5.1); UREA NITROGEN, BLOOD 26 mg/dL (7-18)
[2018-10-24 07:17] LABS: RED BLOOD CELL COUNT(AUTO) 2.41 MIL/uL (4.06-5.63)
[2018-10-24 07:18] LABS: HEMATOCRIT 21.9 % (36.7-47.1); HEMOGLOBIN 7.7 g/dL (12.5-16.3); WHITE BLOOD COUNT (AUTO) 8.9 K/uL (3.6-10.2)
--- NOTE | 2018-10-24 07:30 | NUR ---
RECEIVED PATIENT REPORT FROM PROGRAM PARAPROFESSIONAL. PATIENT IS AWAKE, ALERT AND ORIENTED. PATIENT IS ON ROOM AIR, ON TELE MONITOR SINUS JESSICA. RUNNING 60ML OF NS THROUGH PICC LINE ON RIGHT UPPER ARM. PLAN IS TO SEND HIM TO [facility] FOR A LUMBAR MRI WITHOUT CONTRAST TO RULE OUT POSSIBLE DISCITIS. WILL CONTINUE TO MONITOR AND CARRY OUT PLAN.
[2018-10-24 07:53] LABS: FERRITIN 2201 ng/mL (26-388)
[2018-10-24] MEDS: ENSURE WITH FIBER 237 ML LIQUID (CHOCOLATE) PO SCH ×3 (08:35→17:47)
[2018-10-24] MEDS ORDERED: FERROUS SULFATE 325 MG TABEC PO SCH (09:00)
[2018-10-24] MEDS: PANTOPRAZOLE SODIUM 40 MG VIAL IV SCH (09:01)
[2018-10-24] MEDS: DOCUSATE SODIUM 100 MG CAPSULE PO SCH (09:01)
[2018-10-24] MEDS: TRIAMTERENE/HCTZ 75-50 MG TABLET PO SCH (09:02)
[2018-10-24] MEDS: LOSARTAN POTASSIUM 25 MG TABLET PO SCH (09:02)
[2018-10-24] MEDS: MELOXICAM 7.5 MG TABLET PO SCH (09:03)
[2018-10-24] MEDS: NICOTINE 14 MG/24HR PATCH TD SCH (09:03)
[2018-10-24] MEDS: LINEZOLID 600 MG TABLET PO SCH ×2 (09:03→20:00)
[2018-10-24] MEDS: ENOXAPARIN SODIUM 40 MG/0.4 ML DISP.SYRIN SQ SCH (09:11)
--- NOTE | 2018-10-24 10:05 | NUR ---
REPORT GIVEN TO [facility] TO TRANSPORT PATIENT TO [facility] FOR LUMBAR MRI. PATIENT IS AMBULATORY AND STABLE. RIGHT UPPER ARM PICC LINE INTACT.
--- NOTE | 2018-10-24 11:26 | NUR ---
PATIENT IS BACK FROM MRI OF THE LUMBAR, HE IS IN BED. BED IS IN LOW POSITION, LOCKED WITH BED ALARM IN REACH. NO DISTRESS NOTED, PATIENT KEPT COMFORTABLE. WILL CONTINUE TO MONITOR.
[2018-10-24] MEDS ORDERED: LEVO750T21 PO (16:26)
[2018-10-24] MEDS ORDERED: [UNRECOGNIZED DRUG - CODE] PO (16:26)
[2018-10-24] MEDS: TAMSULOSIN HCL 0.4 MG CAP.SR.24H PO SCH (17:47)
--- NOTE | 2018-10-24 18:47 | NUR ---
PATIENT IS LYING IN BED, BED IS IN LOW LOCKED POSITION. CALL LIGHT IS IN REACH. PATIENT IS CURRENTLY TRANSFUSING 1 UNIT OF BLOOD. TRANSFUSION BEGAN AT 1735. NO ADVERSE REACTION NOTED. MONITORING CLOSELY AND CONTINUOUSLY.
--- NOTE | 2018-10-24 19:32 | NUR ---
BLOOD TRANSFUSION COMPLETE. VITAL SIGNS STABLE. NO ADVERSE REACTION NOTED. REPORT GIVEN TO BAKER NURSE.
--- NOTE | 2018-10-24 19:33 | NUR ---
PATIENT IS AWAKE IN BED, AAOX3. DENIES PAIN OR ANY DISTRESS ON ASSESSMENT. SAFETY MEASURES IN PLACE, WILL CONTINUE TO MONITOR PATIENT.
[2018-10-24] MEDS: SIMVASTATIN 20 MG TABLET PO SCH (20:00)
[2018-10-24 20:34] LABS: BASOPHILS % (AUTO) 0.5 % (0.0-2.0); EOSINOPHILS % (AUTO) 0.4 % (0.0-7.0); HEMATOCRIT 27.9 % (36.7-47.1); HEMOGLOBIN 9.6 g/dL (12.5-16.3); LYMPHOCYTES # (AUTO) 1.1 K/uL (20.0-40.0); MEAN CORPUSCULAR HEMOGLOBIN 31.1 uug (23.8-33.4); MEAN CORPUSCULAR HGB CONC 35 g/dL (32.5-36.3); MEAN CORPUSCULAR VOLUME 90.3 fL (73.0-96.2); MONOCYTES # (AUTO) 0.7 K/uL (2.0-10.0); MONOCYTES % (AUTO) 9.9 % (0.0-11.0); NEUTROPHILS # (AUTO) 5.3 K/uL (1.8-8.9); NEUTROPHILS % (AUTO) 74.2 % (38.5-71.5); PLATELET COUNT (AUTO) 353 K/uL (152-348); RED BLOOD CELL COUNT(AUTO) 3.09 MIL/uL (4.06-5.63); WHITE BLOOD COUNT (AUTO) 7.2 K/uL (3.6-10.2)
--- NOTE | 2018-10-24 22:19 | NUR ---
Discharge home with family, patient in stable condition, vss stable
[2018-10-25] MEDS ORDERED: PANTOPRAZOLE SODIUM 40 MG TABLET.DR PO SCH (07:00)
[2018-10-25 15:07] LABS: *IMMUNOGLOBULIN G, SERUM 1926 mg/dL (700-1600); IMMUNOGLOBULIN A, SERUM 277 mg/dL (61-437); IMMUNOGLOBULIN M, SERUM 99 mg/dL (15-143)
[2018-10-27 09:07] LABS: A/G RATIO 0.5 (0.7-1.7); ALBUMIN 1.8 g/dL (2.9-4.4); ALPHA-1-GLOBULIN 0.4 g/dL (0.0-0.4); ALPHA-2-GLOBULIN 0.9 g/dL (0.4-1.0); BETA GLOBULIN 0.7 g/dL (0.7-1.3); GAMMA GLOBULIN 1.8 g/dL (0.4-1.8); GLOBULIN, TOTAL 3.8 g/dL (2.2-3.9); M-SPIKE Not Observed g/dL (Not Observed)
== END 2018-10-24 22:20 | disposition home or self-care (01) | DRG 193 ==
LOC: ER 17:26 → TELE 21:33 → MED 10-24 11:25
PROVIDERS: ADMIT Registered Nurse; ATTEND Registered Nurse
PROC: 30243N1 Transfusion of Nonautologous Red Blood Cells into Central Vein, Percutaneous Approach (ICD-10-PCS; principal; 2018-10-24)
DX: J18.9 Pneumonia, unspecified organism (principal); N17.0 Acute kidney failure with tubular necrosis; I50.33 Acute on chronic diastolic (congestive) heart failure; E43 Unspecified severe protein-calorie malnutrition; I13.0 Hypertensive heart and chronic kidney disease with heart failure and stage 1 through stage 4 chronic kidney disease, or unspecified chronic kidney disease; J44.0 Chronic obstructive pulmonary disease with (acute) lower respiratory infection; F17.210 Nicotine dependence, cigarettes, uncomplicated; N40.0 Benign prostatic hyperplasia without lower urinary tract symptoms; M10.9 Gout, unspecified; E78.5 Hyperlipidemia, unspecified; E83.42 Hypomagnesemia; G89.29 Other chronic pain; M19.90 Unspecified osteoarthritis, unspecified site; M06.9 Rheumatoid arthritis, unspecified; M48.061 Spinal stenosis, lumbar region without neurogenic claudication; N18.2 Chronic kidney disease, stage 2 (mild); I25.2 Old myocardial infarction; E86.0 Dehydration; Z68.24 Body mass index [BMI] 24.0-24.9, adult; D64.9 Anemia, unspecified; R42 Dizziness and giddiness; Z86.19 Personal history of other infectious and parasitic diseases; Z22.39 Carrier of other specified bacterial diseases
CPT/HCPCS: 36415; 70030-TC; 70450; 71045; 72148; 82784; 83550; 83605; 83735; 84100; 84155; 84165; 84443; 85025; 85730; 86334; 86850; 86900; 86901; 86920; 87040; 87086; 87400; 93005; 97116; 97530; A4663; C9113; G0378; J1100; J1650; J2185; J3475; J3490; J7030; J7050; P9016-BL; P9021